=== PATIENT | female | born 1980 | race Caucasian/White ===

== ENCOUNTER 2019-03-12 01:54 | Inpatient (IN) | payer MEDICAID ==
[2019-03-12 01:57] VITALS: BMI 23.3
[2019-03-12] MEDS ORDERED: MACROBID100 MG PO (01:58)
[2019-03-12] MEDS ORDERED: ZITHROMAX TRI-500 MG PO (01:58)
[2019-03-12 02:52] LABS: BASOPHILS 0.2 % (0-2); EOSINOPHILS 1.8 % (0-7); HEMATOCRIT 33.9 % (36.0-48.0); HEMOGLOBIN 10.7 g/dL (12-16); IMMATURE GRANULOCYTES 0.3 % (0-5); LYMPHOCYTES 19.8 % (15-50); MCH 25.4 pg (26.0-34.0); MCHC 31.6 g/dL (31.0-37.0); MCV 80.3 fL (80.0-100.0); MEAN PLATELET VOLUME 9.3 fL (7.4-10.4); MONOCYTES 8.5 % (2-11); NEUTROPHILS 69.4 % (40-80); PLATELET COUNT 372 10x3/uL (130-400); RBC 4.22 10x6/uL (4.00-5.40); RDW 19.4 % (11.5-14.5); WBC 15.9 10x3/uL (4.8-10.8)
[2019-03-12 03:04] LABS: ALBUMIN 2.4 g/dL (3.4-5.0); ALKALINE PHOSPHATASE 113 U/L (46-116); ALT (SGPT) 25 U/L (10-68); BILIRUBIN - TOTAL 0.31 mg/dL (0.2-1.3); CALC OSMOLALITY 278 mosm/kg (275-300); CALCIUM 8.5 mg/dL (8.5-10.1); CARBON DIOXIDE 23.4 mmol/L (21.0-32.0); CHLORIDE - SERUM 106 mmol/L (98-107); CREATININE - SERUM 0.8 mg/dL (0.6-1.3); GLUCOSE 100 mg/dL (74-106); POTASSIUM - SERUM 3.7 mmol/L (3.5-5.1); PROTEIN - SERUM 7.1 g/dL (6.4-8.2); SODIUM 140 mmol/L (136-145); UREA NITROGEN 12 mg/dL (7-18); eGFR NON AFRICAN AMERICAN 85 mL/min (90-120)
--- NOTE | 2019-03-12 05:10 | NUR ---
PT ARRIVED TO FLOOR VIA WHEELCHAIR ALERT AND ORIENTED. PT RR EVEN AND UNLABORED. PT HAD MOTHER AT BEDSIDE. 20G IV IN LEFT FOOT INFILTRATED. CATHETER TIP REMOVED. CONSULT FOR VASCULAR ACCESS NURSE PUT IN. ER HAD 6 UNSUCCESSFUL IV STICK ATTEMPTS. BED LOW, SIDE RAILS UP X2, CALL LIGHT WITHIN REACH. WILL CONTINUE TO MON ITOR.
[2019-03-12 05:37] VITALS: BP 111/47
--- NOTE | 2019-03-12 07:30 | NUR ---
RECEIVED A/A/OX4. C/O SOME PAIN IN CHEST WHICH IS SORE FROM COUGHING. COUGH IS ANNEALING OPERATOR. IV OUT AT PRESENT TIME. VASCULAR NURSE WILL START ONE. ASSESSMENT COMPLETED AND NO VOICED NEEDS. WILL CONTINUE POC.
--- NOTE | 2019-03-12 08:30 | NUR ---
IV STARTED IN UPPER LEFT ARM BY VASCULAR NURSE. FLUIDS CONNECTED AND VANC RESTARTED.
--- NOTE | 2019-03-12 09:00 | NUR ---
IV HAS INFILTRATED. DC'D AND VASCULAR NURSE NOTIFIED.
[2019-03-12 09:30] VITALS: BP 97/50
--- NOTE | 2019-03-12 09:45 | NUR ---
VASCULAR NURSE HERE AND STARTED MIDLINE IN RIGHT UPPER ARM. VANC RESTARTED AND INFUSING WELL. PHARMACY NOTIFIED OF NEEDED TIME CHANGE ON VANC. PT TOLERATED PROCEDURE WELL. NO REQUESTS.
[2019-03-12 11:00] VITALS: BP 99/57
--- NOTE | 2019-03-12 12:24 | NUR ---
I have reviewed this patient and I concur with the Shift Assessment completed by the Licensed Practical Nurse today this shift.
[2019-03-12 16:00] VITALS: BP 114/60
--- NOTE | 2019-03-12 20:30 | NUR ---
PT COMPLAINS OF PAIN IN CHEST FROM COUGHING. DR. MOMIN CALLED. CHRISTINE MACIAS OREDERED FOR PAIN. SEE JAN. WILL CONTINUE TO MONITOR.
--- NOTE | 2019-03-13 00:49 | NUR ---
PT RESTING IN BED WITH EYES CLOSED. RR EVEN AND UNLABORED. BED LOW CALL LIGHT WITHIN REACH. WILL CONTINUE TO MONITOR.
--- NOTE | 2019-03-13 03:37 | NUR ---
I have reviewed this patient and I concur with the Shift Assessment completed by the Licensed Practical Nurse today this shift.
--- NOTE | 2019-03-13 04:41 | NUR ---
PT REQUEST PRN BREATHING TREATMENT AND COMPLAINS OF 8/10 PAIN IN CHEST. PRN PAIN MED GIVEN AND RESPIRATORY CALLED. WILL CONTINUE TO MONITOR.
[2019-03-13 05:43] LABS: BASOPHILS 0.3 % (0-2); EOSINOPHILS 2.6 % (0-7); HEMATOCRIT 31.9 % (36.0-48.0); HEMOGLOBIN 10.1 g/dL (12-16); IMMATURE GRANULOCYTES 0.2 % (0-5); LYMPHOCYTES 24.5 % (15-50); MCH 25.4 pg (26.0-34.0); MCHC 31.7 g/dL (31.0-37.0); MCV 80.4 fL (80.0-100.0); MEAN PLATELET VOLUME 9.5 fL (7.4-10.4); MONOCYTES 7.7 % (2-11); NEUTROPHILS 64.7 % (40-80); PLATELET COUNT 303 10x3/uL (130-400); RBC 3.97 10x6/uL (4.00-5.40); RDW 19.8 % (11.5-14.5)
[2019-03-13 05:45] LABS: WBC 11.8 10x3/uL (4.8-10.8)
[2019-03-13 05:59] LABS: CALC OSMOLALITY 277 mosm/kg (275-300); CALCIUM 8.1 mg/dL (8.5-10.1); CARBON DIOXIDE 23.8 mmol/L (21.0-32.0); CHLORIDE - SERUM 108 mmol/L (98-107); CREATININE - SERUM 0.7 mg/dL (0.6-1.3); GLUCOSE 105 mg/dL (74-106); POTASSIUM - SERUM 3.6 mmol/L (3.5-5.1); SODIUM 139 mmol/L (136-145); UREA NITROGEN 12 mg/dL (7-18); eGFR NON AFRICAN AMERICAN > 90 mL/min (90-120)
--- NOTE | 2019-03-13 07:18 | NUR ---
PT ASLEEP, DID NOT WAKE I ENTERED DID NOT FURTHER DSITURB AT THIS TIME. CL IN REACH. SRX2
[2019-03-13 08:44] VITALS: BP 104/56
[2019-03-13 12:08] VITALS: BP 106/61
--- NOTE | 2019-03-13 15:16 | NUR ---
I have reviewed this patient and I concur with the Shift Assessment completed by the Licensed Practical Nurse today this shift.
--- NOTE | 2019-03-13 15:40 | NUR ---
PT REFUSES SCDS. WALKS FREQUENTLY.
--- NOTE | 2019-03-13 19:46 | NUR ---
RECEIVED REPORT, WILL ASSUME CARE OF PT, TALKING ON THE PHONE, DENIES ANY NEEDS AT THIS TIME, CALL LIGHT IN REACH, WILL CONTINUE PLAN OF CARE
[2019-03-13 19:55] VITALS: BP 115/82
[2019-03-13 23:55] VITALS: BP 112/70
--- NOTE | 2019-03-14 03:02 | NUR ---
SLEEPING NO DISTRESS NOTICED AT HTIS TIME, CALL LIGHT IN REACH
[2019-03-14 03:59] VITALS: BP 110/63
[2019-03-14 06:38] LABS: BASOPHILS 0.3 % (0-2); EOSINOPHILS 3.1 % (0-7); HEMATOCRIT 31.6 % (36.0-48.0); HEMOGLOBIN 10.1 g/dL (12-16); IMMATURE GRANULOCYTES 0.3 % (0-5); LYMPHOCYTES 20.1 % (15-50); MCH 25.8 pg (26.0-34.0); MCV 80.8 fL (80.0-100.0); MEAN PLATELET VOLUME 9.8 fL (7.4-10.4); MONOCYTES 7.8 % (2-11); NEUTROPHILS 68.4 % (40-80); PLATELET COUNT 335 10x3/uL (130-400); RBC 3.91 10x6/uL (4.00-5.40); RDW 20.1 % (11.5-14.5); WBC 11.2 10x3/uL (4.8-10.8)
[2019-03-14 06:52] LABS: ALBUMIN 2.1 g/dL (3.4-5.0); ALKALINE PHOSPHATASE 82 U/L (46-116); ALT (SGPT) 18 U/L (10-68); BILIRUBIN - TOTAL 0.39 mg/dL (0.2-1.3); CALC OSMOLALITY 271 mosm/kg (275-300); CALCIUM 8.2 mg/dL (8.5-10.1); CARBON DIOXIDE 22.4 mmol/L (21.0-32.0); CHLORIDE - SERUM 107 mmol/L (98-107); CREATININE - SERUM 0.6 mg/dL (0.6-1.3); GLUCOSE 103 mg/dL (74-106); POTASSIUM - SERUM 3.8 mmol/L (3.5-5.1); PROTEIN - SERUM 6.6 g/dL (6.4-8.2); SODIUM 137 mmol/L (136-145); eGFR NON AFRICAN AMERICAN > 90 mL/min (90-120)
[2019-03-14 06:54] LABS: UREA NITROGEN 7 mg/dL (7-18)
[2019-03-14 08:09] VITALS: BP 106/63
[2019-03-14] MEDS ORDERED: LEVAQUIN750 MG PO (09:42)
--- NOTE | 2019-03-15 09:30 | MORECARE ---
CASE MANAGEMENT DISCHARGE SUMMARY PATIENT: MITUL SHAW UNIT: [id number] ADM DATE: 03/12/19 AGE: 39 : [birth year] SEX: F ROOM/BED: D.5104 AUTHOR: CHAUNCEY NATHAN PHYSICIAN: REFERRING PHYSICIAN: LINDEN CASTILLO MD DATE OF SERVICE: 03/15/19 Discharge Plan Patient Name: MITUL SHAW Facility: [facility]:[place] : 1980 Planned Disposition: Home Anticipated Discharge Date: 03/14/19 Discharge Date: 03/14/2019 Expected LOS: 2 Initial Reviewer: [email or web address] Initial Review Date: 03/15/2019 Generated: 03/15/19 10:29 am Patient Name: MITUL SHAW Page 49123 at 0930 All edits/amendments must be made on the electronic document DICTATION DATE: 03/15/19928 CAMP ATTENDANT: MALDONADO 03/15/19928 RPT#: [id number] DC DATE:03/14/19 STATUS: DIS IN [facility] [address] [facility] [place] [address] END OF REPORT
== END 2019-03-14 13:51 | disposition home or self-care (01) | DRG 194 ==
LOC: D.ER 01:54 → D.M2 03:45
PROVIDERS: Family Medicine; Family Medicine Adult Medicine; ADMIT Family Medicine; ATTEND Family Medicine
PROC: 05HB33Z Insertion of Infusion Device into Right Basilic Vein, Percutaneous Approach (ICD-10-PCS; principal; 2019-03-12)
PROC: B54MZZA Ultrasonography of Right Upper Extremity Veins, Guidance (ICD-10-PCS; 2019-03-12)
DX: J18.9 Pneumonia, unspecified organism (principal); F17.213 Nicotine dependence, cigarettes, with withdrawal; D64.9 Anemia, unspecified

== ENCOUNTER 2019-05-16 14:32 | Inpatient (IN) | payer MEDICAID ==
[~2019-05-16] VITALS: Ht 165.1 cm; Wt 64.4 kg
--- NOTE | ~2019-05-16 | EC ---
PATIENT:MITUL SHAW DATE OF SERVICE: 05/17/19 SEX: F MEDICAL RECORD: [id number] DATE OF : [birth year] LOCATION:D.MS [facility] AGE OF PATIENT: 39 ADMISSION DATE: 05/17/19 REFERRING PHYSICIAN: INTERPRETING PHYSICIAN: BRICE ADAMES MD ECHOCARDIOGRAM REPORT ECHO CHARGES 4 ECHO COMPLETE Date: 05/17/19 CLINICAL DIAGNOSIS: HX OF DRUG USE, LUNG CANCER ECHOCARDIOGRAPHIC MEASUREMENTS (adult normal given) AC root (d.<3.7cm) 3.0 cm LV Septum d (<1.2 cm> 0.8 cm Valve Excursion 1.8 cm LV Septum (systole) 1.0 cm Left Atria (s.<4.0cm> 2.6 cm LVPW d(<1.2cm) 0.8 cm RV (d.<2.3cm) 2.4 cm LVPW (sytole) 1.3 cm LV diastole(<5.6CM) 5.3 cm MV E-F(>70mm/sec) cm LV systole 4.0 cm LVOT Diameter 2.0 cm MV exc.(>10mm) cm Est.ejection fraction (50-75%) % DOPPLER: LVIT cm/sec A 101 cm/sec E 98 cm/sec LA cm/sec RVSP 27.0 mmHg LVOT 102 cm/sec AOP1/2T m/s Asc. Ao 154 cm/sec RVOT 64 cm/sec RA cm/sec PA 101 cm/sec AV Gradient Peak 9.5 mmHg AV Mean 1.1 mmHg AV Area 2.3 cm MV Gradient Peak 5.5 mmHg MV Mean 3.5 mmHg MV Area cm COMMENTS: Machine Stone Polisher: Radu PADILLA Ad Operations Coordinator: 1 Dr. Adames TAPE# PACS Pericardial Effusion N DATE OF SERVICE: 05/17/2019 ECHOCARDIOGRAM DATE OF SERVICE: 05/17/2019 FINDINGS: 1. Left ventricular chamber size is within normal limits. Left ventricular systolic function is normal. Overall ejection fraction estimated at 60%. 2. Left atrium, right atrium, right ventricle chamber size is within normal ECHOCARDIOGRAM REPORT [id number] MITUL SHAW limits. 3. Valvular structures have normal structure and motion. 4. Doppler interrogation reveals trace tricuspid regurgitation, no other valvular insufficiency or stenosis. Pulmonary systolic pressure is estimated at 27 mmHg. 5. No evidence of pericardial effusion or left ventricular thrombus. TRANSINT:[id number] Voice Confirmation ID: [id number] DOCUMENT ID: [id number] BRICE ADAMES MD CC: [id number] DICTATION DATE: 05/18/19641 WASHING MACHINE STRIPER: 05/18/19 0800 ADM IN [facility] [address] [id number]
[~2019-05-16 14:32] MED LIST: LEVAQUIN750 MG PO; MACROBID100 MG PO; ZITHROMAX TRI-500 MG PO
[2019-05-16 16:39] LABS: BASOPHILS 0.2 % (0-2); EOSINOPHILS 1.9 % (0-7); HEMATOCRIT 38.4 % (36.0-48.0); HEMOGLOBIN 12.8 g/dL (12-16); IMMATURE GRANULOCYTES 0.4 % (0-5); LYMPHOCYTES 20.2 % (15-50); MCH 28.1 pg (26.0-34.0); MCHC 33.3 g/dL (31.0-37.0); MCV 84.2 fL (80.0-100.0); MEAN PLATELET VOLUME 9.4 fL (7.4-10.4); MONOCYTES 9.4 % (2-11); NEUTROPHILS 67.9 % (40-80); PLATELET COUNT 299 10x3/uL (130-400); RBC 4.56 10x6/uL (4.00-5.40); RDW 16.5 % (11.5-14.5); WBC 11.9 10x3/uL (4.8-10.8)
[2019-05-16 17:06] LABS: ALBUMIN 2.7 g/dL (3.4-5.0); ALKALINE PHOSPHATASE 100 U/L (46-116); ALT (SGPT) 26 U/L (10-68); BILIRUBIN - TOTAL 0.43 mg/dL (0.2-1.3); CALC OSMOLALITY 273 mosm/kg (275-300); CALCIUM 9.4 mg/dL (8.5-10.1); CARBON DIOXIDE 27.6 mmol/L (21.0-32.0); CHLORIDE - SERUM 100 mmol/L (98-107); CREATININE - SERUM 0.7 mg/dL (0.6-1.3); GLUCOSE 83 mg/dL (74-106); POTASSIUM - SERUM 5.2 mmol/L (3.5-5.1); PROTEIN - SERUM 6.9 g/dL (6.4-8.2); SODIUM 138 mmol/L (136-145); UREA NITROGEN 11 mg/dL (7-18); eGFR NON AFRICAN AMERICAN > 90 mL/min (90-120)
[2019-05-16 17:54] VITALS: BP 114/63
[2019-05-16 19:59] VITALS: BP 104/67
[2019-05-16 21:07] LABS: APTT 27.1 SECONDS (22.8-39.4); INR 0.92 (0.85-1.17); PROTIME 11.9 SECONDS (11.6-15.0)
[2019-05-16 21:09] LABS: D-DIMER-QUANTITATIVE 1.38 ug/mLFEU (0.20-0.54)
[2019-05-16 21:31] VITALS: BP 104/60
[2019-05-16] MEDS ORDERED: BUSPIRONE HCL30 MG PO (23:48)
[2019-05-16] MEDS ORDERED: ACETAMINOPHEN500 M1 PO (23:49)
[2019-05-17 01:11] VITALS: BP 107/56; BMI 23.6
[2019-05-17 04:00] VITALS: BP 99/58
[2019-05-17 09:11] VITALS: BP 97/51
[2019-05-17 11:37] LABS: BASOPHILS 0.1 % (0-2); EOSINOPHILS 1.9 % (0-7); HEMATOCRIT 34.6 % (36.0-48.0); HEMOGLOBIN 11.3 g/dL (12-16); IMMATURE GRANULOCYTES 0.2 % (0-5); LYMPHOCYTES 27.8 % (15-50); MCH 27.8 pg (26.0-34.0); MCHC 32.7 g/dL (31.0-37.0); MCV 85.2 fL (80.0-100.0); MEAN PLATELET VOLUME 9.4 fL (7.4-10.4); MONOCYTES 8.3 % (2-11); NEUTROPHILS 61.7 % (40-80); PLATELET COUNT 282 10x3/uL (130-400); RBC 4.06 10x6/uL (4.00-5.40); RDW 16.1 % (11.5-14.5); WBC 9.3 10x3/uL (4.8-10.8)
[2019-05-17 12:00] LABS: ALBUMIN 2.4 g/dL (3.4-5.0); ALKALINE PHOSPHATASE 85 U/L (46-116); ALT (SGPT) 22 U/L (10-68); BILIRUBIN - TOTAL 0.28 mg/dL (0.2-1.3); CALCIUM 8.5 mg/dL (8.5-10.1); CARBON DIOXIDE 29.1 mmol/L (21.0-32.0); CHLORIDE - SERUM 103 mmol/L (98-107); CREATININE - SERUM 0.8 mg/dL (0.6-1.3); GLUCOSE 104 mg/dL (74-106); SODIUM 137 mmol/L (136-145); eGFR NON AFRICAN AMERICAN 85 mL/min (90-120)
[2019-05-17 12:01] LABS: CALC OSMOLALITY 271 mosm/kg (275-300); POTASSIUM - SERUM 4.3 mmol/L (3.5-5.1); UREA NITROGEN 8 mg/dL (7-18)
[2019-05-17 12:54] VITALS: BMI 23.6
[2019-05-17 13:29] VITALS: BP 88/56
[2019-05-17 15:39] VITALS: Ht 165.1 cm; Wt 64.4 kg
[2019-05-17 17:30] VITALS: BP 107/57
[2019-05-17 20:00] VITALS: BP 114/64
[2019-05-18] VITALS: BP 110/59
[2019-05-18 04:00] VITALS: BP 114/58
[2019-05-18 06:04] LABS: BASOPHILS 0.1 % (0-2); EOSINOPHILS 2.4 % (0-7); HEMATOCRIT 33.4 % (36.0-48.0); HEMOGLOBIN 10.8 g/dL (12-16); IMMATURE GRANULOCYTES 0.1 % (0-5); LYMPHOCYTES 19.3 % (15-50); MCH 27.7 pg (26.0-34.0); MCHC 32.3 g/dL (31.0-37.0); MCV 85.6 fL (80.0-100.0); MEAN PLATELET VOLUME 9.5 fL (7.4-10.4); MONOCYTES 7.5 % (2-11); NEUTROPHILS 70.6 % (40-80); PLATELET COUNT 316 10x3/uL (130-400); RDW 16.4 % (11.5-14.5); WBC 10.6 10x3/uL (4.8-10.8)
[2019-05-18 06:20] LABS: ALBUMIN 2.3 g/dL (3.4-5.0); ALKALINE PHOSPHATASE 79 U/L (46-116); ALT (SGPT) 26 U/L (10-68); BILIRUBIN - TOTAL 0.36 mg/dL (0.2-1.3); CALC OSMOLALITY 269 mosm/kg (275-300); CALCIUM 8.5 mg/dL (8.5-10.1); CARBON DIOXIDE 26.6 mmol/L (21.0-32.0); CHLORIDE - SERUM 103 mmol/L (98-107); CREATININE - SERUM 0.7 mg/dL (0.6-1.3); GLUCOSE 102 mg/dL (74-106); PROTEIN - SERUM 6.5 g/dL (6.4-8.2); SODIUM 136 mmol/L (136-145); UREA NITROGEN 8 mg/dL (7-18); eGFR NON AFRICAN AMERICAN > 90 mL/min (90-120)
[2019-05-18 09:30] VITALS: BP 98/42
[2019-05-18 14:01] VITALS: BP 95/47
[2019-05-18 17:42] VITALS: BP 93/47
[2019-05-18 20:00] VITALS: BP 110/57
[2019-05-19] VITALS: BP 106/59
[2019-05-19 04:00] VITALS: BP 94/55
[2019-05-19 05:16] LABS: BASOPHILS 0.1 % (0-2); EOSINOPHILS 1.9 % (0-7); HEMATOCRIT 33.3 % (36.0-48.0); HEMOGLOBIN 10.7 g/dL (12-16); IMMATURE GRANULOCYTES 0.3 % (0-5); LYMPHOCYTES 20.5 % (15-50); MCH 27.4 pg (26.0-34.0); MCHC 32.1 g/dL (31.0-37.0); MCV 85.4 fL (80.0-100.0); MEAN PLATELET VOLUME 9.2 fL (7.4-10.4); MONOCYTES 9.1 % (2-11); NEUTROPHILS 68.1 % (40-80); PLATELET COUNT 318 10x3/uL (130-400); RDW 16.3 % (11.5-14.5); WBC 9.6 10x3/uL (4.8-10.8)
[2019-05-19 06:13] LABS: ALBUMIN 2.1 g/dL (3.4-5.0); ALKALINE PHOSPHATASE 81 U/L (46-116); ALT (SGPT) 24 U/L (10-68); BILIRUBIN - TOTAL 0.37 mg/dL (0.2-1.3); CALC OSMOLALITY 270 mosm/kg (275-300); CALCIUM 8.2 mg/dL (8.5-10.1); CARBON DIOXIDE 26.4 mmol/L (21.0-32.0); CHLORIDE - SERUM 102 mmol/L (98-107); CREATININE - SERUM 0.7 mg/dL (0.6-1.3); GLUCOSE 108 mg/dL (74-106); PROTEIN - SERUM 6.3 g/dL (6.4-8.2); SODIUM 136 mmol/L (136-145); UREA NITROGEN 8 mg/dL (7-18); eGFR NON AFRICAN AMERICAN > 90 mL/min (90-120)
[2019-05-19 08:49] VITALS: BP 93/48
[2019-05-19 13:23] VITALS: BP 109/63
[2019-05-19 17:43] VITALS: BP 95/49
[2019-05-19 21:41] VITALS: BP 102/65
[2019-05-20] VITALS: BP 98/55
[2019-05-20 04:00] VITALS: BP 93/52
[2019-05-20 05:29] LABS: BASOPHILS 0.1 % (0-2); EOSINOPHILS 2.4 % (0-7); HEMATOCRIT 34.4 % (36.0-48.0); HEMOGLOBIN 11.1 g/dL (12-16); IMMATURE GRANULOCYTES 0.2 % (0-5); LYMPHOCYTES 18.5 % (15-50); MCH 27.9 pg (26.0-34.0); MCHC 32.3 g/dL (31.0-37.0); MCV 86.4 fL (80.0-100.0); MEAN PLATELET VOLUME 9.3 fL (7.4-10.4); MONOCYTES 8.3 % (2-11); NEUTROPHILS 70.5 % (40-80); PLATELET COUNT 329 10x3/uL (130-400); RBC 3.98 10x6/uL (4.00-5.40); RDW 16.2 % (11.5-14.5)
[2019-05-20 05:44] LABS: ALBUMIN 2.3 g/dL (3.4-5.0); ALKALINE PHOSPHATASE 89 U/L (46-116); ALT (SGPT) 25 U/L (10-68); BILIRUBIN - TOTAL 0.28 mg/dL (0.2-1.3); CALC OSMOLALITY 275 mosm/kg (275-300); CARBON DIOXIDE 28.9 mmol/L (21.0-32.0); CHLORIDE - SERUM 103 mmol/L (98-107); CREATININE - SERUM 0.7 mg/dL (0.6-1.3); GLUCOSE 95 mg/dL (74-106); POTASSIUM - SERUM 4.6 mmol/L (3.5-5.1); SODIUM 139 mmol/L (136-145); UREA NITROGEN 7 mg/dL (7-18); eGFR NON AFRICAN AMERICAN > 90 mL/min (90-120)
[2019-05-20 07:32] LABS: APTT 38.5 SECONDS (22.8-39.4); PROTIME 12.7 SECONDS (11.6-15.0)
[2019-05-20 10:01] VITALS: BP 94/51
[2019-05-20 12:51] LABS: PROTEIN - BODY FLUID 5.1 G/DL
[2019-05-20 14:10] LABS: HEPATITIS C ANTIBODY >11.0 S/CO RAT (0.0-0.9)
[2019-05-20 14:35] LABS: MACROPHAGES BF 1 %; NEUT - BF 97 %
--- NOTE | 2019-05-20 14:53 | MORECARE ---
CASE MANAGEMENT DISCHARGE SUMMARY PATIENT: MITUL SHAW UNIT: [id number] ADM DATE: 05/17/19 AGE: 39 : [birth year] SEX: F ROOM/BED: D.2214 AUTHOR: CHAUNCEY NATHAN PHYSICIAN: REFERRING PHYSICIAN: SAIDA NUNO MD DATE OF SERVICE: 05/20/19 Discharge Plan Patient Name: MITUL SHAW Facility: [facility]:[place] : 1980 Planned Disposition: Home or Self Care Anticipated Discharge Date: Discharge Date: Expected LOS: Initial Reviewer: [email or web address] Initial Review Date: 05/16/2019 Generated: 05/20/19 3:53 pm Comments DCP- Discharge Planning Updated by [email or web address]: Patti Duffy on 05/20/19 1:[address] Patient Name: MITUL SHAW Admission Status: ER Accout number: [id number] Admission Date: 05-17-2019 : 1980 Admission Diagnosis:PNEUMONIA, UNSPECIFIED ORGANISM Attending: SAIDA MOMIN Current LOS: 3 Anticipated DC Date: Planned Disposition: Home or Self Care Primary Insurance: MEDICAID [place] Discharge Planning Comments: CM met with patient to complete initial dc planning assessment. CM educated patient on the CM role and verbal consent given by patient to complete assessment. Patient lives at home with her mom where she is independent with her care. At discharge patient plans to return home and feels this is a safe discharge. CM discussed availability of home health, rehab services, and medical equipment. Patient denied known discharge needs at this time. CM will continue to follow and will assist as needed with dc plans/needs. Gas Tender: Patti Duffy DCPIA - Discharge Planning Initial Assessment Updated by [email or web address]: Patti Duffy on 05/20/19 2:49 pm * Is the patient Alert and Oriented? Yes * How many steps to enter\exit or inside your home? * PCP [facility] * [facility] * Preadmission Environment Home with Family * ADLs Independent * Equipment None * List name and contact numbers for known caregivers / representatives who currently or will assist patient after discharge: CHRISTINE SHAW [phone] * Verbal permission to speak to the caregivers and representatives has been obtained from the patient. N/A * Community resources currently utilized None * Can the patient safely return to the preadmission environment? Yes * Has this patient been hospitalized within the prior 30 days at any hospital? Yes Patient Name: MITUL SHAW Page 31889 at 1453 All edits/amendments must be made on the electronic document DICTATION DATE: 05/20/191452 COATING MACHINE FEEDER: MALDONADO 05/20/191452 RPT#: [id number] DC DATE: STATUS: ADM IN [facility] [address] [place] [address] END OF REPORT
[2019-05-20 19:09] VITALS: BP 104/57
[2019-05-20 20:00] VITALS: BP 101/58
[2019-05-21] VITALS: BP 105/56; BP 138/50
[2019-05-21 04:00] VITALS: BP 93/51
[2019-05-21 04:32] LABS: BASOPHILS 0.1 % (0-2); EOSINOPHILS 1.9 % (0-7); HEMATOCRIT 34.1 % (36.0-48.0); HEMOGLOBIN 11.2 g/dL (12-16); IMMATURE GRANULOCYTES 0.3 % (0-5); LYMPHOCYTES 14.5 % (15-50); MCH 27.9 pg (26.0-34.0); MCHC 32.8 g/dL (31.0-37.0); MCV 84.8 fL (80.0-100.0); MEAN PLATELET VOLUME 9.3 fL (7.4-10.4); MONOCYTES 6.4 % (2-11); NEUTROPHILS 76.8 % (40-80); PLATELET COUNT 323 10x3/uL (130-400); RBC 4.02 10x6/uL (4.00-5.40); RDW 15.9 % (11.5-14.5); WBC 9.6 10x3/uL (4.8-10.8)
[2019-05-21 04:49] LABS: ALBUMIN 2.2 g/dL (3.4-5.0); ALKALINE PHOSPHATASE 90 U/L (46-116); ALT (SGPT) 25 U/L (10-68); BILIRUBIN - TOTAL 0.31 mg/dL (0.2-1.3); CALC OSMOLALITY 267 mosm/kg (275-300); CALCIUM 8.4 mg/dL (8.5-10.1); CARBON DIOXIDE 28.7 mmol/L (21.0-32.0); CHLORIDE - SERUM 100 mmol/L (98-107); CREATININE - SERUM 0.8 mg/dL (0.6-1.3); GLUCOSE 128 mg/dL (74-106); POTASSIUM - SERUM 4.2 mmol/L (3.5-5.1); PROTEIN - SERUM 6.6 g/dL (6.4-8.2); SODIUM 134 mmol/L (136-145); UREA NITROGEN 6 mg/dL (7-18); VANCOMYCIN - RANDOM 7.9 ug/mL (10.0-20.0); eGFR NON AFRICAN AMERICAN 85 mL/min (90-120)
[2019-05-21 08:30] VITALS: BP 99/56
--- NOTE | 2019-05-21 13:37 | MORECARE ---
CASE MANAGEMENT DISCHARGE SUMMARY PATIENT: MITUL SHAW UNIT: [id number] ADM DATE: 05/17/19 AGE: 39 : 84 SEX: F ROOM/BED: D.2214 AUTHOR: CHAUNCEY NATHAN PHYSICIAN: REFERRING PHYSICIAN: SAIDA NUNO MD DATE OF SERVICE: 05/21/19 Discharge Plan Patient Name: MITUL SHAW Facility: [facility]:[place] : 1980 Planned Disposition: Home or Self Care Anticipated Discharge Date: Discharge Date: Expected LOS: Initial Reviewer: [email or web address] Initial Review Date: 05/16/2019 Generated: 05/21/19 2:36 pm Comments DCP- Discharge Planning Updated by [email or web address]: Patti Duffy on 05/21/19 12:[address] Villanueva would like patient transferred to [facility] for higher level of care. Called [facility] and spoke with Gurpreet, faxed clinicals to [phone]. DCP- Discharge Planning Updated by [email or web address]: Patti Duffy on 05/20/19 1:[address] Patient Name: MITUL SHAW Admission Status: ER Accout number: [id number] Admission Date: 05-17-2019 : 1980 Admission Diagnosis:PNEUMONIA, UNSPECIFIED ORGANISM Attending: SAIDA MOMIN Current LOS: 3 Anticipated DC Date: Planned Disposition: Home or Self Care Primary Insurance: MEDICAID [place] Discharge Planning Comments: CM met with patient to complete initial dc planning assessment. CM educated patient on the CM role and verbal consent given by patient to complete assessment. Patient lives at home with her mom where she is independent with her care. At discharge patient plans to return home and feels this is a safe discharge. CM discussed availability of home health, rehab services, and medical equipment. Patient denied known discharge needs at this time. CM will continue to follow and will assist as needed with dc plans/needs. Stacker And Sorter Operator: Patti Duffy DCPIA - Discharge Planning Initial Assessment Updated by [email or web address]: Patti Duffy on 05/20/19 2:49 pm * Is the patient Alert and Oriented? Yes * How many steps to enter\exit or inside your home? * PCP [facility] * [facility] * Preadmission Environment Home with Family * ADLs Independent * Equipment None * List name and contact numbers for known caregivers / representatives who currently or will assist patient after discharge: CHRISTINE SHAW [phone] * Verbal permission to speak to the caregivers and representatives has been obtained from the patient. N/A * Community resources currently utilized None * Can the patient safely return to the preadmission environment? Yes * Has this patient been hospitalized within the prior 30 days at any hospital? Yes Last DP export: 05/20/19 1:53 p Patient Name: MITUL SHAW Page 71079 at 1337 All edits/amendments must be made on the electronic document DICTATION DATE: 05/21/191335 FLATWORK FINISHER HAND: MALDONADO 05/21/191335 RPT#: [id number] DC DATE: STATUS: ADM IN [facility] [address] [place] [address] END OF REPORT
[2019-05-21 14:09] LABS: FUNGUS STAIN Final report (())
--- NOTE | 2019-05-21 15:56 | MORECARE ---
CASE MANAGEMENT DISCHARGE SUMMARY PATIENT: MITUL SHAW UNIT: [id number] ADM DATE: 05/17/19 AGE: 39 : 84 SEX: F ROOM/BED: D.2214 AUTHOR: CHAUNCEY NATHAN PHYSICIAN: REFERRING PHYSICIAN: SAIDA NUNO MD DATE OF SERVICE: 05/21/19 Discharge Plan Patient Name: MITUL SHAW Facility: [facility]:[place] : 1980 Planned Disposition: Home or Self Care Anticipated Discharge Date: Discharge Date: Expected LOS: Initial Reviewer: [email or web address] Initial Review Date: 05/16/2019 Generated: 05/21/19 4:55 pm DCP- Discharge Planning Updated by [email or web address]: Patti Duffy on 05/21/19 2:[address] Patient has been accepted to [facility] by Dr Torres and Dr Estrada. They will accept the patient on FridayMay 24 DCP- Discharge Planning Updated by [email or web address]: Patti Duffy on 05/21/19 12:[address] Villanueva would like patient transferred to [facility] for higher level of care. Called [facility] and spoke with Gurpreet, faxed clinicals to [phone]. DCP- Discharge Planning Updated by [email or web address]: Patti Duffy on 05/20/19 1:[address] Patient Name: MITUL SHAW Admission Status: ER Accout number: [id number] Admission Date: 05-17-2019 : 1980 Admission Diagnosis:PNEUMONIA, UNSPECIFIED ORGANISM Attending: SAIDA MOMIN Current LOS: 3 Anticipated DC Date: Planned Disposition: Home or Self Care Primary Insurance: MEDICAID [place] Discharge Planning Comments: CM met with patient to complete initial dc planning assessment. CM educated patient on the CM role and verbal consent given by patient to complete assessment. Patient lives at home with her mom where she is independent with her care. At discharge patient plans to return home and feels this is a safe discharge. CM discussed availability of home health, rehab services, and medical equipment. Patient denied known discharge needs at this time. CM will continue to follow and will assist as needed with dc plans/needs. Belt Knife Feeder: Patti Duffy DCPIA - Discharge Planning Initial Assessment Updated by [email or web address]: Patti Duffy on 05/20/19 2:49 pm * Is the patient Alert and Oriented? Yes * How many steps to enter\exit or inside your home? * PCP [facility] * [facility] * Preadmission Environment Home with Family * ADLs Independent * Equipment None * List name and contact numbers for known caregivers / representatives who currently or will assist patient after discharge: CHRISTINE SHAW [phone] * Verbal permission to speak to the caregivers and representatives has been obtained from the patient. N/A * Community resources currently utilized None * Can the patient safely return to the preadmission environment? Yes * Has this patient been hospitalized within the prior 30 days at any hospital? Yes Last DP export: 05/21/19 12:36 p Patient Name: MITUL SHAW Page 33604 at 1556 All edits/amendments must be made on the electronic document DICTATION DATE: 05/21/19 155 FAMILY MEDICINE CHAIR: MALDONADO 05/21/19 1555 RPT#: [id number] DC DATE: STATUS: ADM IN [facility] [address] [place] [address] END OF REPORT
[2019-05-21 16:51] VITALS: BP 100/56
[2019-05-21 19:08] LABS: ACID FAST SMEAR Negative (()); AFB SPECIMEN PROCESSING Concentration (())
[2019-05-21 20:00] VITALS: BP 98/58
[2019-05-22 19:08] LABS: ACID FAST SMEAR Negative (()); AFB SPECIMEN PROCESSING Concentration (())
== END 2019-05-22 01:17 | disposition short-term general hospital (02) | DRG 167 ==
LOC: D.ER 14:32 → D.MS 22:22 → OBSVTIME 22:22 → D.MS 22:22 → D.SDCHOLD 05-18 14:37 → D.MS 05-18 14:39
PROVIDERS: Emergency Medicine; Family Medicine; Radiology Vascular & Interventional Radiology; Thoracic Surgery (Cardiothoracic Vascular Surgery); ADMIT Family Medicine Adult Medicine; ATTEND Family Medicine Adult Medicine
PROC: 05HY33Z Insertion of Infusion Device into Upper Vein, Percutaneous Approach (ICD-10-PCS; principal; 2019-05-16)
PROC: 0B9 Respiratory System, Drainage (ICD-10-PCS; 2019-05-20)
PROC: 0BDB8ZX Extraction of Left Lower Lobe Bronchus, Via Natural or Artificial Opening Endoscopic, Diagnostic (ICD-10-PCS; 2019-05-21)
DX: J85.1 Abscess of lung with pneumonia (principal); C34.92 Malignant neoplasm of unspecified part of left bronchus or lung

== ENCOUNTER 2019-10-31 12:46 | Inpatient (IN) | payer MEDICAID ==
[~2019-10-31] VITALS: Ht 165.1 cm; Wt 61.2 kg
[~2019-10-31 12:46] MED LIST changes: +ACETAMINOPHEN500 M1 PO; +BUSPIRONE HCL30 MG PO
[2019-10-31 13:12] LABS: BASOPHILS 0.2 % (0-2); EOSINOPHILS 1.5 % (0-7); HEMOGLOBIN 13.9 g/dL (12-16); IMMATURE GRANULOCYTES 0.4 % (0-5); LYMPHOCYTES 29.3 % (15-50); MCH 30.1 pg (26.0-34.0); MCHC 33.1 g/dL (31.0-37.0); MCV 90.9 fL (80.0-100.0); MEAN PLATELET VOLUME 10.4 fL (7.4-10.4); MONOCYTES 10.7 % (2-11); NEUTROPHILS 57.9 % (40-80); RBC 4.62 10x6/uL (4.00-5.40); RDW 15.8 % (11.5-14.5); WBC 13.2 10x3/uL (4.8-10.8)
[2019-10-31 13:18] LABS: APTT 27.4 SECONDS (22.8-39.4); CALC OSMOLALITY 279 mosm/kg (275-300); CALCIUM 8.6 mg/dL (8.5-10.1); CARBON DIOXIDE 28.8 mmol/L (21.0-32.0); CHLORIDE - SERUM 105 mmol/L (98-107); CREATININE - SERUM 0.8 mg/dL (0.6-1.3); GLUCOSE 83 mg/dL (74-106); INR 0.94 (0.85-1.17); POTASSIUM - SERUM 3.2 mmol/L (3.5-5.1); PROTIME 12.1 SECONDS (11.6-15.0); SODIUM 141 mmol/L (136-145); UREA NITROGEN 13 mg/dL (7-18); eGFR NON AFRICAN AMERICAN 85 mL/min (90-120)
[2019-10-31 13:28] LABS: PLATELET COUNT 244 10x3/uL (130-400)
[2019-10-31 13:34] LABS: ALBUMIN 2.8 g/dL (3.4-5.0); ALKALINE PHOSPHATASE 80 U/L (46-116); ALT (SGPT) 20 U/L (10-68); BILIRUBIN - TOTAL 0.35 mg/dL (0.2-1.3); CKMB 0.2 U/L (0.0-3.6); CREATINE KINASE 14 UL (21-215); PRO BNP 935 pg/mL (0-125); PROTEIN - SERUM 6.9 g/dL (6.4-8.2); TROPONIN-I < 0.017 ng/mL (0.000-0.060)
--- NOTE | 2019-10-31 16:00 | NUR ---
LAC PIV WAS BLOWN AFTER RETURN FROM CT SCAN.
--- NOTE | 2019-10-31 17:17 | NUR ---
1700 ARRIVES TO UNIT PER STRETCHER, IV INFUSING, NO DISTRESS NOTED
[2019-10-31] MEDS ORDERED: OSIMERTINIB 80 MG (17:26)
[2019-10-31] MEDS ORDERED: DILAUDID8 MG (17:27)
[2019-10-31 17:38] VITALS: BP 127/60; BMI 22.5
--- NOTE | 2019-10-31 18:29 | NUR ---
1700 CALL PLACED TO GAVIN GILBERT TO UPDATE ON LACTIC ACID OF 3., NNO AT PRESENT, NS BOLUS INFUSING
--- NOTE | 2019-10-31 18:30 | NUR ---
PT SEES CANCER SPECIALIST AT [facility], DR BAKER
[2019-10-31] MEDS ORDERED: DOLOPHINE HCL5 MG PO (18:43)
[2019-10-31 20:00] VITALS: BP 115/55
[2019-11-01] VITALS: BP 108/64
--- NOTE | 2019-11-01 01:10 | NUR ---
ALERT RESTING IN BED DENIES PAIN OR NEEDS AT TIME, SEE SHIFT ASSESSMENT CALL LIGHT IN REACH
[2019-11-01 04:00] VITALS: BP 112/62
[2019-11-01 05:51] LABS: BASOPHILS 0.2 % (0-2); EOSINOPHILS 2.2 % (0-7); HEMATOCRIT 36.7 % (36.0-48.0); HEMOGLOBIN 11.9 g/dL (12-16); IMMATURE GRANULOCYTES 0.3 % (0-5); LYMPHOCYTES 25.2 % (15-50); MCH 29.9 pg (26.0-34.0); MCHC 32.4 g/dL (31.0-37.0); MCV 92.2 fL (80.0-100.0); MEAN PLATELET VOLUME 10.4 fL (7.4-10.4); MONOCYTES 11.5 % (2-11); NEUTROPHILS 60.6 % (40-80); RBC 3.98 10x6/uL (4.00-5.40); RDW 16.1 % (11.5-14.5); WBC 11.4 10x3/uL (4.8-10.8)
[2019-11-01 05:58] LABS: PLATELET COUNT 194 10x3/uL (130-400)
--- NOTE | 2019-11-01 07:15 | NUR ---
REC'D IN BED AWAKE AND ALERT. RESP EVEN AND UNLABORED WITH NO DISTRESS NOTED OR VOICED. ASSESSMENT COMPLETED. C/L IN REACH AT BEDSIDE.
[2019-11-01 08:01] VITALS: BP 108/58
--- NOTE | 2019-11-01 08:46 | NUR ---
WAS MEDICATED FOR C/O PAIN RATING 10/10 PAIN SCALE WAS MEDICATED WITH DILADID PER ORDERS. C/L IN REACH AT BEDSIDE.
[2019-11-01 10:08] LABS: CARBON DIOXIDE 25.8 mmol/L (21.0-32.0); CHLORIDE - SERUM 105 mmol/L (98-107); CREATININE - SERUM 0.8 mg/dL (0.6-1.3); GLUCOSE 88 mg/dL (74-106); SODIUM 140 mmol/L (136-145); eGFR NON AFRICAN AMERICAN 85 mL/min (90-120)
[2019-11-01 10:09] LABS: CALC OSMOLALITY 275 mosm/kg (275-300); POTASSIUM - SERUM 4.6 mmol/L (3.5-5.1); UREA NITROGEN 8 mg/dL (7-18)
[2019-11-01 12:43] VITALS: BP 104/47
--- NOTE | 2019-11-01 12:47 | NUR ---
WAS MEDICATED WITH DILUADID PER ORDERS FOR C/O PAIN RATING 10/10 ON PAIN SCALE. C/L IN REACH AT BEDSIDE.
[2019-11-01 13:52] VITALS: BMI 22.4
--- NOTE | 2019-11-01 16:47 | NUR ---
WAS MEDICATED WITH DILAUDID PER ORDERS FOR C/O PAIN RATING 10/10 ON PAIN SCALE. C/L IN REACH AT BEDSIDE.
--- NOTE | 2019-11-01 19:25 | NUR ---
LYING IN BED WITH EYES OPEN, ALERT AND ORIENTED. UP AD JEAN. NO S/S OF ANY ACUTE DISTRESS. IV TO RIGHT UPPER ARM INFUSING PER ORDERS. WILL NOTE ANY CHANGE.
[2019-11-01 20:00] VITALS: BP 111/60
--- NOTE | 2019-11-01 21:00 | NUR ---
DILAUDID GIVEN PER ORDERS FOR COMPLAINTS OF PAIN. WILL NOTE ANY CHANGE.
[2019-11-02] VITALS: BP 96/56
--- NOTE | 2019-11-02 03:03 | NUR ---
I have reviewed this patient and I concur with the Shift Assessment completed by the Licensed Practical Nurse today this shift.
[2019-11-02 04:00] VITALS: BP 113/55
[2019-11-02 04:40] LABS: BASOPHILS 0.1 % (0-2); EOSINOPHILS 1.6 % (0-7); HEMATOCRIT 34.6 % (36.0-48.0); HEMOGLOBIN 11.3 g/dL (12-16); IMMATURE GRANULOCYTES 0.3 % (0-5); LYMPHOCYTES 18.8 % (15-50); MCH 29.7 pg (26.0-34.0); MCHC 32.7 g/dL (31.0-37.0); MCV 91.1 fL (80.0-100.0); MEAN PLATELET VOLUME 10.2 fL (7.4-10.4); MONOCYTES 12.2 % (2-11); PLATELET COUNT 225 10x3/uL (130-400); WBC 10.9 10x3/uL (4.8-10.8)
[2019-11-02 05:04] LABS: ALBUMIN 2.3 g/dL (3.4-5.0); ALKALINE PHOSPHATASE 74 U/L (46-116); BILIRUBIN - TOTAL 0.58 mg/dL (0.2-1.3); CALC OSMOLALITY 276 mosm/kg (275-300); CALCIUM 7.9 mg/dL (8.5-10.1); CARBON DIOXIDE 28.6 mmol/L (21.0-32.0); CHLORIDE - SERUM 104 mmol/L (98-107); CREATININE - SERUM 0.7 mg/dL (0.6-1.3); GLUCOSE 104 mg/dL (74-106); PROTEIN - SERUM 5.3 g/dL (6.4-8.2); SODIUM 140 mmol/L (136-145); UREA NITROGEN 6 mg/dL (7-18); eGFR NON AFRICAN AMERICAN > 90 mL/min (90-120)
[2019-11-02 05:05] LABS: ALT (SGPT) 14 U/L (10-68); POTASSIUM - SERUM 3.7 mmol/L (3.5-5.1)
--- NOTE | 2019-11-02 08:00 | NUR ---
PT RESTING IN QUIETLY IN BED. RESP EVEN AND UNLABORED. PT REPORTS PAIN 6/10 AT THIS TIME. IV TO RIGHT FOREARM WITH NS @ 50ML/HR, SITE WITHOUT REDNESS OR EDEMA. FLU SWAB OBTAINED AT THIS TIME. INSTRUCTED PT OF NEED FOR URINE SAMPLE. PT VOICES UNDERSTANDING. DENIES FURTHER NEEDS AT THIS TIME. CL WITHIN REACH. ENCOURAGED TO CALL WITH NEEDS. CONTINUE POC
[2019-11-02 08:45] VITALS: BP 111/59; BP 112/68
[2019-11-02 10:08] LABS: UDS - AMPHET NEGATIVE QUAL (NEGATIVE); UDS - BARB NEGATIVE QUAL (NEGATIVE); UDS - BENZO NEGATIVE QUAL (NEGATIVE); UDS - COCAINE NEGATIVE QUAL (NEGATIVE); UDS - OPIATE POSITIVE QUAL (NEGATIVE); UDS - PCP NEGATIVE QUAL (NEGATIVE); UDS - THC NEGATIVE QUAL (NEGATIVE)
[2019-11-02 13:02] VITALS: Ht 165.1 cm; Wt 61.2 kg
[2019-11-02 13:07] VITALS: BP 120/60
[2019-11-02 16:45] VITALS: BP 97/436
--- NOTE | 2019-11-02 20:15 | NUR ---
A&O X 4. AMBULATORY AD JEAN. REPORTS CHEST PAIN WHILE BREATHING 08/19. REQUESTS TO BE UNHOOKED FROM IV TO SHOWER. FAMILY AT BEDSIDE, WILL CONTINUE TO MONITOR.
[2019-11-02 21:10] VITALS: BP 108/52
--- NOTE | 2019-11-03 01:31 | NUR ---
I have reviewed this patient and I concur with the Shift Assessment completed by the Licensed Practical Nurse today this shift.
[2019-11-03 01:58] VITALS: BP 97/52
[2019-11-03 07:32] LABS: BASOPHILS 0.1 % (0-2); EOSINOPHILS 1.6 % (0-7); IMMATURE GRANULOCYTES 0.2 % (0-5); LYMPHOCYTES 20.9 % (15-50); MCH 29.5 pg (26.0-34.0); MCHC 32.4 g/dL (31.0-37.0); MCV 91.2 fL (80.0-100.0); MONOCYTES 14.5 % (2-11); NEUTROPHILS 62.7 % (40-80); PLATELET COUNT 217 10x3/uL (130-400); RBC 3.73 10x6/uL (4.00-5.40); RDW 15.7 % (11.5-14.5); WBC 8.6 10x3/uL (4.8-10.8)
--- NOTE | 2019-11-03 07:34 | NUR ---
MOTHER PHONE THAT PT IS IN SO MUCH PAIN, INFORMED MOTHER THAT PAIN MEDS WERE BEING GIVEN AND THAT I WOULD DO WHAT I COULD FOR HER PAIN THIS SHIFT, MOTHER INFORMED ME THAT PT IS NOT UNDER CARE OF DR YOUNG THAT SHE GOES TO [facility] FOR HER CANCER TREATMENT, CONT TO MONITOR PT BP AND PAIN AND REPORT TO NECESSARY
--- NOTE | 2019-11-03 07:42 | NUR ---
DR YOUNG HERE TO SEE PT, NEW ORDERS NOTED FOR PAIN MEDS
[2019-11-03 07:56] LABS: ALBUMIN 2.2 g/dL (3.4-5.0); ALKALINE PHOSPHATASE 79 U/L (46-116); ALT (SGPT) 16 U/L (10-68); BILIRUBIN - TOTAL 0.48 mg/dL (0.2-1.3); CALC OSMOLALITY 276 mosm/kg (275-300); CALCIUM 8.3 mg/dL (8.5-10.1); CARBON DIOXIDE 27.1 mmol/L (21.0-32.0); CHLORIDE - SERUM 105 mmol/L (98-107); CREATININE - SERUM 0.8 mg/dL (0.6-1.3); GLUCOSE 100 mg/dL (74-106); POTASSIUM - SERUM 3.7 mmol/L (3.5-5.1); PROTEIN - SERUM 5.8 g/dL (6.4-8.2); SODIUM 139 mmol/L (136-145); UREA NITROGEN 9 mg/dL (7-18); eGFR NON AFRICAN AMERICAN 85 mL/min (90-120)
[2019-11-03 08:47] VITALS: BP 112/57
[2019-11-03 11:37] VITALS: BP 128/81
[2019-11-03 17:29] VITALS: BP 105/61
[2019-11-04] VITALS: BP 113/54
[2019-11-04 07:07] LABS: ALBUMIN 2.2 g/dL (3.4-5.0); ALKALINE PHOSPHATASE 94 U/L (46-116); ALT (SGPT) 16 U/L (10-68); BILIRUBIN - TOTAL 0.67 mg/dL (0.2-1.3); CALC OSMOLALITY 276 mosm/kg (275-300); CARBON DIOXIDE 25.6 mmol/L (21.0-32.0); CHLORIDE - SERUM 105 mmol/L (98-107); CREATININE - SERUM 0.7 mg/dL (0.6-1.3); GLUCOSE 95 mg/dL (74-106); POTASSIUM - SERUM 4.3 mmol/L (3.5-5.1); PROTEIN - SERUM 5.5 g/dL (6.4-8.2); SODIUM 140 mmol/L (136-145); UREA NITROGEN 7 mg/dL (7-18); eGFR NON AFRICAN AMERICAN > 90 mL/min (90-120)
--- NOTE | 2019-11-04 07:10 | NUR ---
PT RESTING IN BED. NO SIGNS OF DISTRESS. IV TO RIGHT UPPER ARM PATENT NO REDNESS OR TENDERNESS. DENIES ANY FURTHER NEED AT THIS TIME. CALL LIGHT IN REACH. BED LOW POSITION. NO FAMILY AT BEDSIDE AT THIS TIME.
[2019-11-04 07:48] LABS: BASOPHILS 0.1 % (0-2); EOSINOPHILS 1.9 % (0-7); HEMATOCRIT 32.2 % (36.0-48.0); HEMOGLOBIN 10.6 g/dL (12-16); IMMATURE GRANULOCYTES 0.2 % (0-5); LYMPHOCYTES 16.9 % (15-50); MCH 29.6 pg (26.0-34.0); MCHC 32.9 g/dL (31.0-37.0); MCV 89.9 fL (80.0-100.0); MEAN PLATELET VOLUME 10.5 fL (7.4-10.4); MONOCYTES 13.6 % (2-11); NEUTROPHILS 67.3 % (40-80); PLATELET COUNT 258 10x3/uL (130-400); RBC 3.58 10x6/uL (4.00-5.40); RDW 15.5 % (11.5-14.5); WBC 8.6 10x3/uL (4.8-10.8)
[2019-11-04 08:49] VITALS: BP 107/59
--- NOTE | 2019-11-04 09:29 | NUR ---
Nutrition follow-up: Diet: Regular PO intake 50-75% of meals Pt with increased pain. Wt: 135# Will continue to provide food choices and honor food preferences. RDN following.
--- NOTE | 2019-11-04 11:35 | NUR ---
I have reviewed this patient and I concur with the Shift Assessment completed by the Licensed Practical Nurse today this shift.
[2019-11-04 12:47] VITALS: BP 109/56
--- NOTE | 2019-11-04 13:12 | NUR ---
DR SIDHU AWARE OF CHEST XRAY PER ORDER. STATED NEED BRONCH BUT PT REQUEST TO GO TO [facility] TO HAVE DONE. DANNY AWARE OF WANTING TO TRANSFER.
--- NOTE | 2019-11-04 13:59 | MORECARE ---
CASE MANAGEMENT DISCHARGE SUMMARY PATIENT: MITUL SHAW UNIT: [id number] ADM DATE: 10/31/19 AGE: 39 : 82 SEX: F ROOM/BED: D.[facility] AUTHOR: CHAUNCEY NATHAN PHYSICIAN: REFERRING PHYSICIAN: ORI HERNANDEZ MD DATE OF SERVICE: 11/04/19 Discharge Plan Patient Name: MITUL SHAW Facility: [facility]:[place] : 1980 Planned Disposition: Home Anticipated Discharge Date: Discharge Date: Expected LOS: Initial Reviewer: [email or web address] Initial Review Date: 10/31/2019 Generated: 11/04/19 2:59 pm DCPIA - Discharge Planning Initial Assessment Updated by [email or web address]: Patti Duffy on 11/04/19 1:57 pm * Is the patient Alert and Oriented? Yes * PCP [facility] * [facility]acy [facility] * Preadmission Environment Home with Family * ADLs Independent * Equipment None * List name and contact numbers for known caregivers / representatives who currently or will assist patient after discharge: CHRISTINE ( MOTHER) [phone] * Verbal permission to speak to the caregivers and representatives has been obtained from the patient. N/A * Community resources currently utilized None * Additional services required to return to the preadmission environment? No * Can the patient safely return to the preadmission environment? Yes * Has this patient been hospitalized within the prior 30 days at any hospital? No Patient Name: MITUL SHAW Page 13086 at 1359 All edits/amendments must be made on the electronic document DICTATION DATE: 11/04/19 1359 HYDRAULIC DESIGN ENGINEER: MALDONADO 11/04/19 1359 RPT#: [id number] DC DATE: STATUS: ADM IN [facility] [address] [place] [address] END OF REPORT
--- NOTE | 2019-11-04 14:43 | MORECARE ---
CASE MANAGEMENT DISCHARGE SUMMARY PATIENT: MITUL SHAW UNIT: [id number] ADM DATE: 10/31/19 AGE: 39 : [birth year] SEX: F ROOM/BED: D.2237 AUTHOR: CHAUNCEY NATHAN PHYSICIAN: REFERRING PHYSICIAN: ORI SAMUELS MD DATE OF SERVICE: 11/04/19 Discharge Plan Patient Name: MITUL SHAW Facility: [facility]:[place] : 1980 Planned Disposition: Home Anticipated Discharge Date: Discharge Date: Expected LOS: Initial Reviewer: [email or web address] Initial Review Date: 10/31/2019 Generated: 11/04/19 3:43 pm Comments DCP- Discharge Planning Updated by [email or web address]: Patti Duffy on 11/04/19 1:[address] Patient Name: MITUL SHAW Admission Status: ER Accout number: [id number] Admission Date: 10-31-2019 : 1980 Admission Diagnosis: Attending: ORI SAMUELS Current LOS: 4 Anticipated DC Date: Planned Disposition: Home Primary Insurance: MEDICAID [place] Discharge Planning Comments: CM met with patient to complete initial dc planning assessment. CM educated patient on the CM role and verbal consent given by patient to complete assessment. Patient lives at home with her mother. At discharge patient plans to return home and feels this is a safe discharge. CM discussed availability of home health, rehab services, and medical equipment. She is currently in treatment for lung cancer at [facility]. Patient would like to be transferred to [facility], Dr Cochran and Dr Samuels will speak with her and her mother. Patient denied known discharge needs at this time. CM will continue to follow and will assist as needed with dc plans/needs. Collection Coordinator: Patti Duffy DCPIA - Discharge Planning Initial Assessment Updated by [email or web address]: Patti Duffy on 11/04/19 1:57 pm * Is the patient Alert and Oriented? Yes * PCP [facility] * Pharmacy [facility] * Preadmission Environment Home with Family * ADLs Independent * Equipment None * List name and contact numbers for known caregivers / representatives who currently or will assist patient after discharge: CHRISTINE ( MOTHER) [phone] * Verbal permission to speak to the caregivers and representatives has been obtained from the patient. N/A * Community resources currently utilized None * Additional services required to return to the preadmission environment? No * Can the patient safely return to the preadmission environment? Yes * Has this patient been hospitalized within the prior 30 days at any hospital? No Last DP export: 11/04/19 12:59 Patient Name: MITUL SHAW Page 64204 at 1443 All edits/amendments must be made on the electronic document DICTATION DATE: 11/04/191442 SEMICONDUCTORS WAFER BREAKER: MALDONADO 11/04/19 1443 RPT#: [id number] ID DATE: STATUS: ADM IN [facility] [address] [place] [address] END OF REPORT
[2019-11-04 16:48] VITALS: BP 102/33
[2019-11-04 19:30] VITALS: BP 100/55
--- NOTE | 2019-11-04 19:45 | NUR ---
PATIENT LYING DOWN IN BED. PATIENT HAS IV IN RIGHT UPPER ARM WITH NS @100, NO REDNESS OR SWELLING. 2L/MIN OXYGEN. PATIENT DENIES ANY NEEDS AT THIS TIME. BED RAILS X2. CALL LIGHT AND BEDSIDE TABLE WITHIN REACH.
[2019-11-05 00:30] VITALS: BP 105/62
[2019-11-05 05:00] VITALS: BP 97/46
[2019-11-05 06:13] LABS: BASOPHILS 0.1 % (0-2); EOSINOPHILS 1.6 % (0-7); HEMATOCRIT 36.7 % (36.0-48.0); IMMATURE GRANULOCYTES 0.3 % (0-5); LYMPHOCYTES 15.1 % (15-50); MCH 29.9 pg (26.0-34.0); MCHC 32.7 g/dL (31.0-37.0); MCV 91.3 fL (80.0-100.0); MEAN PLATELET VOLUME 9.7 fL (7.4-10.4); MONOCYTES 13.8 % (2-11); NEUTROPHILS 69.1 % (40-80); PLATELET COUNT 252 10x3/uL (130-400); RBC 4.02 10x6/uL (4.00-5.40); RDW 15.6 % (11.5-14.5); WBC 7.6 10x3/uL (4.8-10.8)
[2019-11-05 06:51] LABS: ALBUMIN 2.3 g/dL (3.4-5.0); ALKALINE PHOSPHATASE 101 U/L (46-116); ALT (SGPT) 18 U/L (10-68); BILIRUBIN - TOTAL 0.85 mg/dL (0.2-1.3); CALC OSMOLALITY 272 mosm/kg (275-300); CALCIUM 8.4 mg/dL (8.5-10.1); CARBON DIOXIDE 26.6 mmol/L (21.0-32.0); CHLORIDE - SERUM 102 mmol/L (98-107); CREATININE - SERUM 0.6 mg/dL (0.6-1.3); GLUCOSE 84 mg/dL (74-106); POTASSIUM - SERUM 4.4 mmol/L (3.5-5.1); SODIUM 138 mmol/L (136-145); UREA NITROGEN 6 mg/dL (7-18); eGFR NON AFRICAN AMERICAN > 90 mL/min (90-120)
--- NOTE | 2019-11-05 07:57 | NUR ---
PT RECEIVED LAYING IN BED, SLEEPY BUT WAKES EASY. NPO FOR BRONCH. AM MEDS GIVEN WITH SIP, ANTIBIOTICS INFUSING. DR YOUNG IN ROOM AT PRESENT.
[2019-11-05 08:51] VITALS: BP 111/65
--- NOTE | 2019-11-05 11:58 | MORECARE ---
CASE MANAGEMENT DISCHARGE SUMMARY PATIENT: MITUL SHAW UNIT: [id number] ADM DATE: 10/31/19 AGE: 39 : [birth year] SEX: F ROOM/BED: D.2237 AUTHOR: CHAUNCEY NATHAN PHYSICIAN: REFERRING PHYSICIAN: ORI SAMUELS MD DATE OF SERVICE: 11/05/19 Discharge Plan Patient Name: MITUL SHAW Facility: [facility]:[place] : 1980 Planned Disposition: Home Anticipated Discharge Date: Discharge Date: Expected LOS: Initial Reviewer: [email or web address] Initial Review Date: 10/31/2019 Generated: 11/05/19 12:57 pm Comments DCP- Discharge Planning Updated by [email or web address]: Patti Duffy on 11/05/19 10:[address] I have started the process to transfer to [facility]. I called and spoke with Letitia at the transfer center and called Sonia Lopez. DCP- Discharge Planning Updated by [email or web address]: Patti Duffy on 11/04/19 1:[address] Patient Name: MITUL SHAW Admission Status: ER Accout number: [id number] Admission Date: 10-31-2019 : 1980 Admission Diagnosis: Attending: ORI SAMUELS Current LOS: 4 Anticipated DC Date: Planned Disposition: Home Primary Insurance: MEDICAID [place] Discharge Planning Comments: CM met with patient to complete initial dc planning assessment. CM educated patient on the CM role and verbal consent given by patient to complete assessment. Patient lives at home with her mother. At discharge patient plans to return home and feels this is a safe discharge. CM discussed availability of home health, rehab services, and medical equipment. She is currently in treatment for lung cancer at [facility]. Patient would like to be transferred to [facility], Dr Cochran and Dr Samuels will speak with her and her mother. Patient denied known discharge needs at this time. CM will continue to follow and will assist as needed with dc plans/needs. Dishing Machine Operator: Patti Duffy DCPIA - Discharge Planning Initial Assessment Updated by [email or web address]: Patti Duffy on 11/04/19 1:57 pm * Is the patient Alert and Oriented? Yes * PCP CRISTIANA SKINNER * Pharmacy [facility] * Preadmission Environment Home with Family * ADLs Independent * Equipment None * List name and contact numbers for known caregivers / representatives who currently or will assist patient after discharge: CHRISTINE ( MOTHER) [phone] * Verbal permission to speak to the caregivers and representatives has been obtained from the patient. N/A * Community resources currently utilized None * Additional services required to return to the preadmission environment? No * Can the patient safely return to the preadmission environment? Yes * Has this patient been hospitalized within the prior 30 days at any hospital? No Last DP export: 11/04/19 1:43 Patient Name: MITUL SHAW Page [id number] at 1158 All edits/amendments must be made on the electronic document DICTATION DATE: 11/05/191156 ENGINEERING DRAFTER: MALDONADO 11/05/191156 RPT#: [id number] DC DATE: STATUS: ADM IN [facility] [address] [place] [address] END OF REPORT
[2019-11-05 12:22] VITALS: BP 103/57
--- NOTE | 2019-11-05 12:29 | NUR ---
TALKED WITH [facility] TRANSFER TEAM AND THEY STATE PT IS ESTABLISHED PT AND SHE HAS BEEN ACCEPTED. REQUESTED FACE SHEET AND VITALS TO BE FAXED. AFTER IN SYSTEM WILL CHECK AND SEE BED AVAILABILITY OR WAIT LIST.
[2019-11-05] MEDS ORDERED: Vancomycin 1.25 GM/N IV (14:23)
[2019-11-05] MEDS ORDERED: ZOSYN 3.3753.375 G1 IV (14:23)
[2019-11-05] MEDS ORDERED: TESSALON PERLE100 MG PO (14:24)
[2019-11-05] MEDS ORDERED: IPRAT-ALBUT 0.5-3 ML UPD ×2 (14:24)
[2019-11-05] MEDS ORDERED: MUCINEX600 MG PO (14:24)
[2019-11-05] MEDS ORDERED: Duragesic TRANSDERM (14:24)
[2019-11-05] MEDS ORDERED: DILAUDID INJ2 MG/ML IV (14:24)
[2019-11-05 17:02] VITALS: BP 99/61
--- NOTE | 2019-11-05 17:53 | MORECARE ---
CASE MANAGEMENT DISCHARGE SUMMARY PATIENT: MITUL SHAW UNIT: [id number] ADM DATE: 10/31/19 AGE: 39 : [birth year] SEX: F ROOM/BED: D.2237 AUTHOR: JACDOC PHYSICIAN: REFERRING PHYSICIAN: ORI HERNANDEZ MD DATE OF SERVICE: 11/05/19 Discharge Plan Patient Name: MITUL SHAW Facility: [facility]:[place] : 1980 Planned Disposition: Home Anticipated Discharge Date: Discharge Date: Expected LOS: Initial Reviewer: [email or web address] Initial Review Date: 10/31/2019 Generated: 11/05/19 6:53 pm Comments DCP- Discharge Planning Updated by [email or web address]: Lyric Shafer on 11/05/19 4:[address] CM called and checked status of transfer patient will transfer to [facility] room 721. Nursing has called report and just awaiting ambulance to transport. CM will continue to follow and assist as needed with discharge planning needs. DCP- Discharge Planning Updated by [email or web address]: Patti Duffy on 11/05/19 10:[address] I have started the process to transfer to [facility]. I called and spoke with Letitia at the transfer center and called Sonia Lopez. DCP- Discharge Planning Updated by [email or web address]: Patti Duffy on 11/04/19 1:[address] Patient Name: MITUL SHAW Admission Status: ER Accout number: [id number] Admission Date: 10-31-2019 : 1980 Admission Diagnosis: Attending: ORI HERNANDEZ Current LOS: 4 Anticipated DC Date: Planned Disposition: Home Primary Insurance: MEDICAID [place] Discharge Planning Comments: CM met with patient to complete initial dc planning assessment. CM educated patient on the CM role and verbal consent given by patient to complete assessment. Patient lives at home with her mother. At discharge patient plans to return home and feels this is a safe discharge. CM discussed availability of home health, rehab services, and medical equipment. She is currently in treatment for lung cancer at [facility]. Patient would like to be transferred to [facility], Dr Cochran and Dr Dworkin will speak with her and her mother. Patient denied known discharge needs at this time. CM will continue to follow and will assist as needed with dc plans/needs. Merchandiser Retail Representative: Patti Duffy DCPIA - Discharge Planning Initial Assessment Updated by [email or web address]: Patti Duffy on 11/04/19 1:57 pm * Is the patient Alert and Oriented? Yes * PCP CRISTIANA SKINNER * Pharmacy [facility] * Preadmission Environment Home with Family * ADLs Independent * Equipment None * List name and contact numbers for known caregivers / representatives who currently or will assist patient after discharge: CHRISTINE ( MOTHER) [phone] * Verbal permission to speak to the caregivers and representatives has been obtained from the patient. N/A * Community resources currently utilized None * Additional services required to return to the preadmission environment? No * Can the patient safely return to the preadmission environment? Yes * Has this patient been hospitalized within the prior 30 days at any hospital? No Last DP export: 11/05/19 10:58 Patient Name: MITUL SHAW Page [id number] at 1753 All edits/amendments must be made on the electronic document DICTATION DATE: 11/05/191752 PLANT CONTROL AIDE: MALDONADO 11/05/191752 RPT#: [id number] DC DATE: STATUS: ADM IN [facility] [address] [place] [address] END OF REPORT
[2019-11-05 21:00] VITALS: BP 108/59
--- NOTE | 2019-11-05 23:55 | NUR ---
[facility] ARRIVED TO TRANSPORT PATIENT TO [facility]. PT PACKED UP AND READY TO GO. PAIN LAST GIVEN AT 2300. REPORT CALLED BY ELDER MESSINA AT [facility]IFT [facility].
== END 2019-11-05 23:55 | disposition short-term general hospital (02) | DRG 180 ==
LOC: D.ER 12:46 → D.MS 15:32
PROVIDERS: Family Medicine; Internal Medicine Pulmonary Disease; ADMIT Internal Medicine Nephrology; ATTEND Internal Medicine Nephrology
PROC: 0B938ZZ Drainage of Right Main Bronchus, Via Natural or Artificial Opening Endoscopic (ICD-10-PCS; principal; 2019-11-05 11:00)
DX: C34.90 Malignant neoplasm of unspecified part of unspecified bronchus or lung (principal); J18.9 Pneumonia, unspecified organism; C79.89 Secondary malignant neoplasm of other specified sites; F17.203 Nicotine dependence unspecified, with withdrawal; E87.2 Acidosis; J90 Pleural effusion, not elsewhere classified; F12.90 Cannabis use, unspecified, uncomplicated; E87.6 Hypokalemia; D64.9 Anemia, unspecified; R91.8 Other nonspecific abnormal finding of lung field; G89.3 Neoplasm related pain (acute) (chronic); R59.0 Localized enlarged lymph nodes